=== PATIENT | female | born 1960 | race Caucasian/White ===

== ENCOUNTER 2016-09-20 07:40 | Emergency (ER) | payer OTHER ==
[2016-09-20 07:50] VITALS: BP 131/84; PULSE 83; RESP 16; TEMP 98.1; O2SAT 95
--- NOTE | 2016-09-20 08:31 | EDPHY ---
H & P Stated Complaint: Bit by own cat breaking up a cat fight;bite 24 hrs ago; concern re infection Time Seen by Provider: 09/20/16 08:19 HPI/ROS: CHIEF COMPLAINT: Cat bite. HISTORY OF PRESENT ILLNESS: The patient is a 55 year old female presenting with cat bite to her right calf. The patient was trying to stop her cat from going after a kitten. She took 600mg Clindamycin yesterday, this was leftover from her hip surgery. This morning the bite increased in redness and swelling. She denies fever, abdominal pain, or vomiting. REVIEW OF SYSTEMS: Aside from elements discussed in the HPI, a comprehensive 10-point review of systems was reviewed and is negative. PAST MEDICAL HISTORY: Noncontributory. NO history of diabetes. SOCIAL HISTORY: Non smoker. VITAL SIGNS: Reviewed by me GENERAL: Well-developed, well-nourished, resting comfortably in no respiratory distress. EXTREMITIES: Multiple puncture wounds on right lateral calf, one puncture wound with 6cm of surrounding erythema. No lymphangitic spread. No calf tendernss, no swelling, no significant pain. NEURO: Alert and oriented, grossly nonfocal. PSYCHIATRIC: Normal mentation, no agitation. Portions of this note were transcribed by a medical staff credentialing coordinator. I personally performed a history, physical exam, medical decision making, and confirmed accuracy of information the transcribed note. Source: Patient - Personal History Current Tetanus Diphtheria and Acellular Pertussis (TDAP): Unsure - Medical/Surgical History Hx Diabetes: No - Social History Smoking Status: Never smoked Constitutional: Initial Vital Signs Temperature (C) 36.7 C 09/20/16 07:47 Heart Rate 83 09/20/16 07:47 Respiratory Rate 16 09/20/16 07:47 Blood Pressure 131/84 H 09/20/16 07:47 O2 Sat (%) 95 09/20/16 07:47 O2 Delivery Mode Room Air Allergies/Adverse Reactions: Penicillins Allergy (Mild, Verified 09/20/16 07:47) Home Medications: Medication Instructions Recorded Multivitamins [Multivitamin (*)] 1 each PO DAILY 07/27/13 Doxycycline Hyclate 100 mg PO BID #14 tab 09/20/16 Medical Decision Making ED Course/Re-evaluation: will start doxycycline as allergic to Penicillin. Tetanus updated. Follow up if worse. Area of erythema outlined. Differential Diagnosis: Diff dx considered included wound infection, cellulitis, deep space infection, local reaction to animal bite. - Data Points Medications Given: Discontinued Medications Diphtheria/Tetanus/Acell Pertussis (Boostrix) 0.5 ml IM .ONCE ONE Stop: 09/20/16 08:45 Last Admin: 09/20/16 08:49 Dose: 0.5 ml Departure - Departure Disposition: Home, Routine, Self-Care Clinical Impression: Cat bite involving extremity Condition: Good Instructions: Animal Bite (ED) Additional Instructions: 1. Return to the Emergency Department if you develop fever, abdominal pain, vomiting, or worsening symptoms in the next 24 hours. 2. Monitor the bite jessica, if redness and swelling increase, return to the Emergency Department. 3. Take full course of antibiotics. 4. You have been referred to a primary care physician, for recheck please call the referred physician to schedule an appointment. Referrals: Tashia Almazan MD [Medical Doctor] - As per Instructions Prescriptions: Doxycycline Hyclate 100 mg PO BID #14 tab
[2016-09-20] MEDS ORDERED: TDAP ADULT 0.5 ML INJ (BOOSTRIX) IM ONE (08:44)
== END 2016-09-20 08:51 | disposition home or self-care (01) ==
PROC: 3E0234Z Introduction of Serum, Toxoid and Vaccine into Muscle, Percutaneous Approach (ICD-10-PCS; principal; 2016-09-20)
DX: S81.851A Open bite, right lower leg, initial encounter (principal); Z23 Encounter for immunization; W55.01XA Bitten by cat, initial encounter; Y92.89 Other specified places as the place of occurrence of the external cause; Y93.89 Activity, other specified